=== PATIENT | female | born 1995 | race Caucasian/White ===

== ENCOUNTER 2018-06-22 19:04 | Emergency (ER) | payer OTHER ==
[~2018-06-22] VITALS: Ht 165.1 cm; Wt 60.3 kg
[2018-06-22] MEDS ORDERED: TRINESSA TABLE1 EACH PO (19:19)
[2018-06-22] MEDS ORDERED: CITALOPRAM HYDR10 MG PO (19:20)
== END 2018-06-22 20:25 | disposition home or self-care (01) ==
LOC: ED 19:04
DX: S93.402A Sprain of unspecified ligament of left ankle, initial encounter (principal); Z79.899 Other long term (current) drug therapy; X50.1XXA Overexertion from prolonged static or awkward postures, initial encounter; Y93.89 Activity, other specified; Y92.89 Other specified places as the place of occurrence of the external cause; Y99.8 Other external cause status